=== PATIENT | female | born 1955 | race Caucasian/White ===

== ENCOUNTER 2023-10-15 08:18 | Outpatient (OUT) | payer MEDICARE, SELFPAY ==
--- NOTE | 2023-10-15 08:40 | MR_ITS ---
The [address] [address] Patient Name: JACKI SCHWARTZ MRN: [facility]:[id number] date: 1955 Sex: F Assigned Patient Location: LAB Current Patient Location: Accession/Order Number: [id number] Exam Date: 10/15/2023 08:55 Report Date: 10/16/2023 01:46 At the request of: NON-STAFF PHYSICIAN Procedure: MR head/brain wo/w con EXAM: MR head/brain wo/w con HISTORY: Migraine G43.909 COMPARISON: None. TECHNIQUE: Multisequence MRI brain was performed with and without intravenous contrast. FINDINGS: There is no restricted diffusion to suggest acute infarct. There is no midline shift, mass effect, or abnormal extraaxial fluid collections. There are no abnormal parenchymal or leptomeningeal enhancement. The cortical sulci and ventricular system are within normal limits for the age. There is a small focus of CSF intensity in the left basal ganglia, suggestive of a dilated perivascular space versus a remote lacunar infarct. There are a few nonspecific scattered foci of T2/FLAIR signal abnormality in the supratentorial white matter, likely reflect chronic microvascular ischemic changes. The major intracranial flow voids are visualized. The cerebellar tonsils are normal in position. The orbits demonstrate no suspicious enhancement or any focal lesions. The paranasal sinuses show no air-fluid level. The mastoid air cells are clear. The calvarium and extracranial soft tissues are unremarkable. MR/MR head/brain wo/w con IMPRESSION: No acute intracranial abnormality or abnormal intracranial enhancement. Mild chronic microvascular ischemic changes. Electronically authenticated by: ALEC MYERS Date: 10/16/2023 01:46
[2023-10-15 08:47] LABS: Estimated GFR (African America >60 (>=60); Estimated GFR (Non-African Ame >60 (>=60)
== END 2023-10-15 08:19 | disposition home or self-care (01) ==
PROVIDERS: PCP Internal Medicine
DX: G43.909 Migraine, unspecified, not intractable, without status migrainosus (principal)
CPT/HCPCS: 36415; 70553; 82565; 84520; A9575

== ENCOUNTER 2024-09-06 07:36 | Emergency (ER) | payer MEDICARE, SELFPAY ==
[2024-09-06 07:46] VITALS: BP 155/91; PULSE 82; TEMP 36.7; O2SAT 98; BMI 29.9
[2024-09-06 08:01] VITALS: O2SAT 99
[2024-09-06] MEDS: PREDNISONE 20 MG TABLET 40 MG PO (08:10)
[2024-09-06] MEDS: KETOROLAC TROMETHAMINE 30 MG/ML VIAL 15 MG IM (08:11)
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
--- NOTE | 2024-09-06 11:04 | RESP.RT ---
Done per nursing
== END 2024-09-06 10:09 | disposition home or self-care (01) ==
PROVIDERS: Emergency Provider Emergency Medicine; PCP Internal Medicine
DX: S20.212A Contusion of left front wall of thorax, initial encounter (principal); V18.0XXA Pedal cycle driver injured in noncollision transport accident in nontraffic accident, initial encounter
CPT/HCPCS: 71101; 94667; 96372; 99284; J1885; J7512